=== PATIENT | female | born 1965 | race Caucasian/White ===

== ENCOUNTER → 2019-03-29 | Outpatient (CLI) | payer OTHER ==
[2019-03-29 12:41] LABS: HCT 43.9 % (34.0-46.0); HGB 14.5 gm/dL (11.4-16.0); MCH 28.3 pg (25.0-35.0); MCHC 33.1 g/dL (31.0-37.0); MCV 85.7 fL (80.0-100.0); Mean Platelet Volume 6.6; Platelet Count 295 k/uL (150-450); RBC 5.12 m/uL (3.80-5.40); RDW 13.7 % (11.5-15.5); WBC 11.9 k/uL (3.8-10.6)
[2019-03-29 12:57] LABS: INR 0.9 (<1.2)
[2019-03-29 12:58] LABS: Partial Thromboplastin Time 29.1 sec (22.0-30.0)
[2019-03-29 13:10] LABS: Appearance,Urine Clear (Clear); Bilirubin,Urine Negative (Negative); Blood,Urine Negative (Negative); Color,Urine Yellow; Glucose,Urine (UA) Negative (Negative); Ketones,Urine Negative (Negative); Leukocyte Esterase,Urine Negative (Negative); Nitrite,Urine Negative (Negative); PH, Urine 5.5 (5.0-8.0); Protein,Urine Negative (Negative); Specific Gravity,Urine 1.012 (1.001-1.035); Urobilinogen,Urine <2.0 mg/dL (<2.0)
[2019-03-29 18:42] LABS: African American GFR (CKD) 97.6 (60.0-200.0); Albumin 4.4 g/dL (3.80-4.90); Albumin/Globulin Ratio 1.91 (1.60-3.17); Anion Gap 5.9 mmol/L (4.00-12.00); BUN/Creat Ratio 18.75 Ratio (12.00-20.00); Calcium 9.3 mg/dL (8.7-10.3); Carbon Dioxide 28.1 mmol/L (21.6-31.8); Globulin 2.3 g/dL (1.6-3.3); Potassium 4.7 mmol/L (3.5-5.5); Total Bilirubin 0.4 mg/dL (0.3-1.2); Total Protein 6.7 g/dL (6.2-8.2)
== END | disposition home or self-care (01) ==
LOC: LABWHC1 11:41
PROVIDERS: ATTEND Orthopaedic Surgery
DX: Z01.812 Encounter for preprocedural laboratory examination (principal)
CPT/HCPCS: 36415; 80053; 81003; 85027; 85610; 85730; 87070

== ENCOUNTER 2019-04-09 08:16 | Observation (INO) | payer OTHER ==
[~2019-04-09 08:16] MED LIST: HYDROmorphone 0.5 MG/0.5 ML SYRINGE IVP PRN; LIDOCAINE 1% 20 ML VIAL (10MG/ML) FOR IV START INTRADERMA PRN; ROPIVACAINE 246.25 MG, EPINEPHrine 0.5 MG, KETOROLAC 30 MG, cloNIDine HCL/PF 80 MCG, WA... MISCELLANE ONE; TRANEXAMIC ACID 1,000 MG in SODIUM CHLORIDE 0.9% 100 ML IVPB ONE
[2019-04-09] MEDS: LACTATED RINGERS 1,000 ML IV SCH ×2 (08:42→09:34)
[2019-04-09] MEDS: ONDANSETRON 4 MG/2 ML VIAL IVP ONE ×2 (08:43→13:47)
[2019-04-09] MEDS: MELOXICAM 7.5 MG TAB PO ONE ×2 (08:43→13:47)
[2019-04-09] MEDS: ACETAMINOPHEN TAB 500 MG TAB PO ONE ×2 (08:43→13:47)
[2019-04-09] MEDS ORDERED: MIDAZOLAM (PF) 2 MG/2 ML VIAL IVP ONE (08:58)
[2019-04-09] MEDS ORDERED: fentaNYL (PF) 50 MCG/ML 2 ML AMP IVP ONE (08:58)
[2019-04-09] MEDS ORDERED: HYDROcodone/APAP 5-325MG 1 EACH TAB PO PRN (09:09)
[2019-04-09] MEDS ORDERED: NA PHOS,M-B/NA PHOS,DI-BA 133 ML ENEMA RECTAL PRN (09:09)
[2019-04-09] MEDS ORDERED: BISACODYL 10 MG SUPP RECTAL PRN (09:09)
[2019-04-09] MEDS ORDERED: ONDANSETRON 4 MG/2 ML VIAL IVP PRN (09:09)
[2019-04-09] MEDS ORDERED: HYDROmorphone 0.5 MG/0.5 ML SYRINGE IVP PRN (09:09)
[2019-04-09] MEDS ORDERED: NALOXONE 0.4 MG/ML 1 ML VIAL IV PRN (09:09)
[2019-04-09] MEDS ORDERED: DIAZEPAM 5 MG TAB PO PRN (09:09)
[2019-04-09] MEDS ORDERED: MAGNESIUM HYDROXIDE 2,400 MG/10 ML CUP PO PRN (09:09)
[2019-04-09] MEDS ORDERED: HYDROmorphone 1 MG/ML 1 ML SYRINGE IVP PRN (09:09)
[2019-04-09] MEDS ORDERED: MIDAZOLAM 2 MG/2 ML VIAL ONE (09:37)
[2019-04-09] MEDS ORDERED: PROPOFOL 10 MG/ML 20 ML VIAL IV ONE (09:37)
[2019-04-09] MEDS ORDERED: fentaNYL (PF) 50 MCG/ML 2 ML AMP ONE (09:37)
[2019-04-09] MEDS ORDERED: TRANEXAMIC ACID 1,000 MG/10 ML VIAL ONE (09:37)
[2019-04-09] MEDS ORDERED: ceFAZolin 3,000 MG in SODIUM CHLORIDE 0.9% IRRIGATIO 3,000 ML IRRIGATION ONE (09:37)
[2019-04-09] MEDS ORDERED: SODIUM CHLORIDE 0.9% 100 ML BAG ONE (09:37)
[2019-04-09] MEDS ORDERED: LACTATED RINGERS 1,000 ML IV ONE (10:19)
[2019-04-09] MEDS ORDERED: ROPIVACAINE 0.2%-NS ON-Q PUMP 1,090 MG, EMPTY PAIN BALL 1 EACH MISCELLANE PRN (10:23)
--- NOTE | 2019-04-09 10:26 | P.ANPRN ---
Procedure Note - Anesthesia - Nerve Block Performed Right Adductor Canal Infusion Time Out Performed: Yes Date of Procedure: 04/09/19 Procedure Start Time: 08:57 Location of Patient Procedure: PreOp Indication: Acute Post-Operative Pain Specifically requested for management of pain by DrMarily: Gurmeet Spangler Sedation Type: Sedate with meaningful contact maintained Preparation: Sterile Prep Position: Supine Catheter Depth at Skin (cm): 8 Catheter: Indwelling Needle Types: Pajunk Needle Gauge: 20 Technique: Ultrasound Injectate: 0.5% Ropivacaine (see comment for volume) (20 cc) Blood Aspirated: No Pain Paresthesia on Injection Noted: No Resistance on Injection: Normal Events: Uneventful and Well Tolerated
--- NOTE | 2019-04-09 10:58 | P.OP ---
Date of Procedure: 04/09/19 Preoperative Diagnosis: Severe osteoarthritis right knee Postoperative Diagnosis: Severe osteoarthritis right knee Procedure(s) Performed: Right total knee arthroplasty with visionaire patient specific guides Implants: Kong and Nephew Journey II CR Oxinium cruciate retaining femoral component size 5, right Kong & Nephew Journey right nonporous tibial baseplate size 3 Kong & Nephew Journey II, XLPE CR articular insert, size 9 mm, Size 3-4 right Kong & Nephew Journey BCS resurfacing oval patellar component, 29 mm All components were cemented using Palacos R bone cement. Visionaire patient specific guides The articulation is Oxinium on polyethylene. Anesthesia: spinal Surgeon: Gurmeet Spangler Emissions Testing Technician #1: Adele Lopez Estimated Blood Loss (ml): 50 Pathology: other (Bone and cartilage) Condition: stable Disposition: PACU Indications for Procedure: After failure of conservative treatment we discussed the surgical and nonsurgical treatment options at length. Patient wishes to proceed with a total knee arthroplasty. Complications specific to this procedure were discussed at length, including but not limited to infection, bleeding, stiffness, and nerve injury. Patient is aware of all these complications and informed consent was obtained Operative Findings: The operative findings are consistent with severe osteoarthritis of the right knee Description of Procedure: Patient was seen in the preoperative area consent was reviewed and operative site was marked with a skin marker. An adductor canal pain catheter was placed by anesthesia in the preoperative area. Patient was then brought to the operating room and given preoperative antibiotics intravenously. A spinal anesthetic was administered by the anesthesia department. A tourniquet was placed on the upper thigh and the lower extremity was prepped and draped in usual sterile fashion. A gram of transexamic acid was given. A universal timeout was then performed which confirmed the patient's name, surgical site, ALLERGIES, and consent. The lower extremity was then exsanguinated and tourniquet was inflated to 250 mmHg. A standard and anterior midline approach to the knee was performed. The skin and subcutaneous tissue was dissected down to the patellar tendon. A medial parapatellar arthrotomy was then performed. The knee was then extended, the patellar was everted, and the knee was again flexed. Anterior horns of both menisci were excised, and a release was performed to the posterior medial aspect of the knee. On gross visual inspection, there was complete loss of articular cartilage in the medial and patellofemoral joint spaces. There was also significant cartilage damage in the lateral compartment. There were multiple periarticular osteophytes. The patient specific guide was placed on the distal femur, and pinned in place. Using the patient specific guide, the distal femoral cut was performed. The cutting block was then removed and the cut was checked for flatness. The appropriate 5-in-1 cutting block was then pinned in place through the holes that were drilled through the patient specific guide. The anterior condyles were cut without notching. The posterior and chamfer cuts were performed while protecting the collateral ligaments. The cutting block was then removed. Attention was then directed to the tibia. The remaining ACL was removed with a Ronguer, and the tibia was then gently subluxed forward with a large bent knee retractor. Any remaining menisci was excised. The posterior lateral corner was cauterized in order to cauterize the lateral geniculate artery. The patient specific guide for the tibia was then placed and was held in place with pins. Pinholes were then placed for rotation of the tibial component as well. Proximal tibia was then cut and sized. Next trials were then placed with the appropriate-sized insert. The knee was able to fully extend and flex to 130 and was stable throughout all range of motion. The knee was then extended, patella everted. Patella was then measured, and then using an osteotomy guide, the patella was cut at the appropriate level. The patella was then measured and drilled and the patella trial was then placed. The knee was then taken through range of motion with the patella trial and the patella tracked normally. The knee was then extended patella trial was then removed and the patella was everted. Knee was then flexed and lug holes were drilled through the femoral trial and the femoral trial was then removed. The tibial was then exposed, and the tibial broach guide was then pinned in place after it was set for the appropriate rotation to allow for the most coverage without overhang. The tibia was then reamed and broached. The cut surfaces of bone were then irrigated with pulsatile lavage. The posterior structures were injected with the ropivacaine solution. The knee was also irrigated with Irrisept solution. The components were then opened, the cement was mixed, and the components were then cemented in place. The cement was allowed to harden with the knee in full extension. While the cement was hardening, the remaining soft tissues were then injected with a ropivacaine solution, which consisted of 246.25 mg of ropivacaine, 0.5 mg of epinephrine, 30 mg of Toradol, 80 g of clonidine, and 48.45 mL of sterile water, for a total of 100 mL of fluid injected. After the cemented hardened. The tourniquet was released, and hemostasis was obtained. A second gram of transexamic acid was given. The knee was again irrigated. The knee was again taken through range of motion and found to be stable throughout all range of motion of 0-130, and the patella tracked normally. The fascia was then closed with #2 strata fix suture. The subcutaneous tissue was closed with 3-0 Vicryl and 3-0 strata fix. Dermabond glue was used for the skin and placed with the knee in flexion. The patient was placed in a sterile silver dressing. Patient was then transferred to recovery room in stable condition. The senior administrative assistant PAULETTE Montgomery was required due the complexity surgery and the need for a skilled pastrycook's assistant. She assisted in positioning, draping, retraction, and closure of the wound.
--- NOTE | 2019-04-09 12:27 | XR ---
EXAMINATION TYPE: XR knee limited RT DATE OF EXAM: 04/09/2019 COMPARISON: None HISTORY: Knee replacement TECHNIQUE: 2 view right knee FINDINGS: Tibial and femoral components of in place. Postsurgical changes are within the soft tissues . No significant joint effusion is evident. No acute fractures are evident IMPRESSION: 1. No acute fractures post knee replacement.
--- NOTE | 2019-04-09 13:14 | P.CONS ---
History of Present Illness - Reason for Consult Consult date: 04/09/19 Medical management of hypertension - Chief Complaint Right total knee arthroplasty - History of Present Illness Patient is a 53-year-old female with a known history of hypertension, GERD, osteoarthritis and also history of IBS was admitted to the hospital for elective right total knee arthroplasty. Patient is status post facility. Currently denied any complaints of chest pain or shortness of breath. No nausea vomiting or abdominal pain. Postoperatively the patient was hypotensive. Pain is fairly controlled. Patient does smoke cigarettes on daily basis. No leg swelling. No orthopnea no PND. Denied any complaints of nausea vomiting, abdominal pain or diarrhea. Review of Systems Constitutional: Patient denies any fever or chills . No generalized weakness or weight loss. Abdomen: Patient denied nausea vomiting and diarrhea and abdominal pain. Cardiovascular: Patient denies any chest pain or short of breath no palpitations. Respiratory: patient denied any cough is from production. No shortness of breath Neurologic: Patient denied any numbness or tingling headache. Musculoskeletal: Patient denies any complaints of joint swelling or deformity. Skin: Negative Psychiatric: Negative Endocrine: No heat or cold intolerance. No recent weight gain. Genitourinary: No dysuria or hematuria. All other 14 point ROS negative except the above Past Medical History Past Medical History: GERD/Reflux, Hypertension, Osteoarthritis (OA), Pneumonia Additional Past Medical History / Comment(s): IBS,diverticulitis History of Any Multi-Drug Resistant Organisms: None Reported Past Surgical History: Cholecystectomy, Joint Replacement, Orthopedic Surgery, Tubal Ligation Additional Past Surgical History / Comment(s): aura bunionectomy, left carpal tunnel, left knee arthroscopy, colposcopy, left knee replaced 2014 Past Anesthesia/Blood Transfusion Reactions: No Reported Reaction Additional Past Anesthesia/Blood Transfusion Reaction / Comm: woke up in middle of surgery before Smoking Status: Current every day smoker - Past Family History Mother Family Medical History: No Reported History Medications and Allergies Home Medications Medication Instructions Recorded Confirmed Type Dextroamphetamine/Amphetamine 5 mg PO 1700 07/15/15 04/09/19 History [Adderall] Dextroamphetamine/Amphetamine 35 mg PO DAILY 07/15/15 04/09/19 History [Adderall] Pantoprazole Sodium [Protonix] 40 mg PO DAILY 07/15/15 04/09/19 History ALPRAZolam [Xanax] 0.25 mg PO BID PRN 04/05/19 04/09/19 History Cholecalciferol (Vitamin D3) 5,000 unit PO DAILY 04/05/19 04/09/19 History [Vitamin D3] Hyoscyamine Sulfate [Levbid] 0.375 mg PO DAILY 04/05/19 04/09/19 History Ibuprofen [Motrin] 600 mg PO Q8HR PRN 04/05/19 04/09/19 History Losartan Potassium [Cozaar] 100 mg PO DAILY 04/05/19 04/09/19 History Meloxicam [Mobic] 15 mg PO DAILY 04/05/19 04/09/19 History Vortioxetine Hydrobromide 20 mg PO DAILY 04/05/19 04/09/19 History [Trintellix] Allergies Allergy/AdvReac Type Severity Reaction Status Date / Time doxycycline Allergy Chest Verified 04/09/19 08:30 Pain,SOB Penicillins Allergy Unknown Verified 04/09/19 08:30 Childhood Physical Exam Vitals: Vital Signs Temp Pulse Resp BP Pulse Ox 04/09/19 11:59 65 16 112/61 97 04/09/19 11:44 62 16 109/59 96 04/09/19 11:29 97.3 F L 77 16 104/56 95 04/09/19 08:36 97.0 F L 97 18 132/62 97 Intake and Output 04/08/19 04/09/19 04/09/19 22:59 06:59 14:59 Intake Total 1801 Output Total 50 Balance 1751 Intake: IV 1801 Output: Estimated Blood Loss 50 PHYSICAL EXAMINATION: Patient is lying in the bed comfortably, no acute distress, awake alert and rocky ented.. HEENT: Normocephalic. Neck is supple. Pupils reactive. Nostrils clear. Oral cavity is moist. Ears reveal no drainage. Neck reveals no JVD, carotid bruits, or thyromegaly. CHEST EXAMINATION: Trachea is central. Symmetrical expansion. Lung oyo clear to auscultation and percussion. CARDIAC: Normal S1, S2 with no gallops. No murmurs ABDOMEN: Soft. Bowel sounds normal. No organomegaly. No abdominal bruits. Extremities: reveal no edema. No clubbing or cyanosis Neurologically awake, alert, oriented x3 with well-coordinated movements. No focal deficits noted Skin: No rash or skin lesions. Psychiatric: Coperative. Nonsuicidal Musculoskeletal: No joint swelling or deformity. Right knee surgical site intact. Normal range of motion. Assessment and Plan Assessment: Status post right total knee arthroplasty secondary to osteoarthritis Hypertension. Blood pressure is on the lower side now. Osteoarthritis GERD IBS History of diverticulitis Nicotine addiction DVT prophylaxis Plan: Patient will be continued on pain management and bowel regimen. Currently on anticoagulation with aspirin twice daily. Patient does take losartan at home which will be held due to hypotension. Encourage ambulation and incentive spirometry. Follow closely and further recommendations based on the clinical course. Smoking cessation has been counseled extensively. Thank you for your consult. Time with Patient: Greater than 30
[2019-04-09] MEDS: HYDROmorphone 0.5 MG/0.5 ML SYRINGE IVP PRN ×2 (14:06→18:43)
[2019-04-09 14:22] VITALS: BMI 31.1
[2019-04-09] MEDS: SODIUM CHLORIDE 0.9% 1,000 ML IV SCH (17:22)
[2019-04-09] MEDS: PANTOPRAZOLE 40 MG TABLET PO SCH (17:23)
[2019-04-09] MEDS: NON-FORMULARY DRUG (Dextroamphetamine/Amphetamine [Adderall] 5 MG) PO SCH (17:28)
[2019-04-09] MEDS: HYDROcodone/APAP 5-325MG 1 EACH TAB PO PRN (17:32)
[2019-04-09] MEDS: hydrOXYzine PAMOATE 25 MG CAP PO PRN (17:32)
[2019-04-09] MEDS: ASPIRIN 325 MG TAB PO SCH (20:42)
[2019-04-09] MEDS: SENNOSIDES-DOCUSATE SODIUM 1 EACH TAB PO SCH (20:42)
[2019-04-10] MEDS: HYDROmorphone 0.5 MG/0.5 ML SYRINGE IVP PRN ×4 (01:00→18:16)
[2019-04-10] MEDS: SODIUM CHLORIDE 0.9% 1,000 ML IV SCH ×3 (03:58→22:00)
[2019-04-10] MEDS: HYDROcodone/APAP 5-325MG 1 EACH TAB PO PRN (04:38)
[2019-04-10] MEDS: hydrOXYzine PAMOATE 25 MG CAP PO PRN (04:39)
[2019-04-10 07:36] LABS: Basophils % (A) 0 %; Eosinophils # (A) 0.3 k/uL (0-0.7); Eosinophils % (A) 4 %; HCT 37.3 % (34.0-46.0); HGB 11.9 gm/dL (11.4-16.0); Lymphocytes # (A) 1.8 k/uL (1.0-4.8); Lymphocytes % (A) 20 %; MCH 27.6 pg (25.0-35.0); MCV 86.4 fL (80.0-100.0); Mean Platelet Volume 6.9; Monocytes # (A) 0.7 k/uL (0-1.0); Monocytes % (A) 7 %; Neutrophils # (A) 6.3 k/uL (1.3-7.7); Neutrophils % (A) 68 %; Platelet Count 257 k/uL (150-450); RBC 4.32 m/uL (3.80-5.40); RDW 14.4 % (11.5-15.5); WBC 9.3 k/uL (3.8-10.6)
[2019-04-10 07:48] LABS: African American GFR (CKD) >90 (>60 ml/min/1.73 sqM); Anion Gap 7 mmol/L; Blood Urea Nitrogen 15 mg/dL (7-17); Calcium 8.4 mg/dL (8.4-10.2); Carbon Dioxide 24 mmol/L (22-30); Chloride 111 mmol/L (98-107); Glucose 107 mg/dL (74-99); Potassium 4.1 mmol/L (3.5-5.1); Sodium 142 mmol/L (137-145)
[2019-04-10] MEDS: ASPIRIN 325 MG TAB PO SCH ×2 (08:00→20:37)
[2019-04-10] MEDS: PANTOPRAZOLE 40 MG TABLET PO SCH (08:00)
[2019-04-10] MEDS: CHOLECALCIFEROL 1,000 UNIT TAB PO SCH (08:00)
[2019-04-10] MEDS ORDERED: MELOXICAM 7.5 MG TAB PO SCH (09:00)
[2019-04-10] MEDS ORDERED: HYDROcodone/APAP 7.5-325MG 1 EACH TAB PO PRN (09:11)
[2019-04-10] MEDS ORDERED: KETOROLAC 30 MG/ML 1 ML VIAL IVP PRN (09:11)
--- NOTE | 2019-04-10 09:31 | P.DS ---
Providers Date of admission: 04/10/19 01:27 Expected date of discharge: 04/10/19 Attending physician: Gurmeet Spangler Consults: 04/09/19 09:09 Consult Physician Routine Consulting Provider: Remigio Yeung Consult Reason/Comments: medical management Do you want consulting provider notified?: Yes Primary care physician: Miles Graff - Discharge Diagnosis(es) (1) Osteoarthritis of right knee Current Visit: Yes Status: Acute (2) Status post total right knee replacement Current Visit: Yes Status: Acute Hospital Course: This is a 53-year-old female with known history of degenerative arthritis of the right knee. The patient presents for evaluation. After discussion and consideration patient elects to proceed with total knee arthroplasty. The patient is seen preoperatively by Dr. Spangler and medically cleared for surgery by their primary care physician. Patient is admitted to [facility] on 04/09/2019 for total knee arthroplasty. The procedures performed without complication or sequelae. The patient is doing well postoperatively. Labs and vital signs are stable on day of discharge. On day of discharge patient's knee incision is healing well. There is minimal erythema. There is no drainage noted at this time. There is minimal soft tissue swelling to the knee. Patient has full foot and ankle motion without difficulty or pain. Calf is soft and nontender to palpation. Neurovascular status to the right lower extremity is intact. Patient is discharged home in good condition. Opioid start talking form is reviewed and signed at patient bedside. Please see med rec for accurate list of home medications. Plan - Discharge Summary Discharge Rx Participant: Yes New Discharge Prescriptions: New Aspirin 325 mg PO BID #60 tab HYDROcodone/APAP 7.5-325MG [[place] 7.5-325] 1 - 2 tab PO Q6H PRN #56 tab PRN Reason: Pain Sennosides [Senokot] 1 tab PO BID #60 tablet No Action Dextroamphetamine/Amphetamine [Adderall] 5 mg PO DAILY@1700 Pantoprazole Sodium [Protonix] 40 mg PO DAILY Dextroamphetamine/Amphetamine [Adderall] 30 mg PO DAILY Ibuprofen [Motrin] 600 mg PO Q8HR PRN PRN Reason: Pain Hyoscyamine Sulfate [Levbid] 0.375 mg PO DAILY Meloxicam [Mobic] 15 mg PO DAILY Losartan Potassium [Cozaar] 100 mg PO DAILY ALPRAZolam [Xanax] 0.25 mg PO BID PRN PRN Reason: Anxiety Vortioxetine Hydrobromide [Trintellix] 20 mg PO DAILY Cholecalciferol (Vitamin D3) [Vitamin D3] 5,000 unit PO DAILY Dextroamphetamine/Amphetamine [Dextroamp-Amphet ER 5 mg Cap] 5 mg PO DAILY Discharge Medication List Dextroamphetamine/Amphetamine [Adderall] 5 mg PO DAILY@1700 07/15/15 [History] Dextroamphetamine/Amphetamine [Adderall] 30 mg PO DAILY 07/15/15 [History] Pantoprazole Sodium [Protonix] 40 mg PO DAILY 07/15/15 [History] ALPRAZolam [Xanax] 0.25 mg PO BID PRN 04/05/19 [History] Cholecalciferol (Vitamin D3) [Vitamin D3] 5,000 unit PO DAILY 04/05/19 [History] Hyoscyamine Sulfate [Levbid] 0.375 mg PO DAILY 04/05/19 [History] Ibuprofen [Motrin] 600 mg PO Q8HR PRN 04/05/19 [History] Losartan Potassium [Cozaar] 100 mg PO DAILY 04/05/19 [History] Meloxicam [Mobic] 15 mg PO DAILY 04/05/19 [History] Vortioxetine Hydrobromide [Trintellix] 20 mg PO DAILY 04/05/19 [History] Aspirin 325 mg PO BID #60 tab 04/10/19 [Rx] Dextroamphetamine/Amphetamine [Dextroamp-Amphet ER 5 mg Cap] 5 mg PO DAILY 04/10/19 [History] HYDROcodone/APAP 7.5-325MG [[place] 7.5-325] 1 - 2 tab PO Q6H PRN #56 tab 04/10/19 [Rx] Sennosides [Senokot] 1 tab PO BID #60 tablet 04/10/19 [Rx] Follow up Appointment(s)/Referral(s): Gurmeet Spangler DO [Doctor of Osteopathic Medicine] - 2 Weeks Activity/Diet/Wound Care/Special Instructions: Weightbearing as tolerated with a walker. CPM 5-6h daily. Leave dressing intact. May be removed by home care nurse or by patient in 10 days. May shower with dressing on. Recommend use of compression stockings for 2 weeks during the day. May remove at night. Please follow up with [facility] and call with any questions or concerns, . Discharge Disposition: HOME WITH HOME HEALTH SERVICES
[2019-04-10] MEDS: HYDROcodone/APAP 7.5-325MG 1 EACH TAB PO PRN ×2 (10:25→15:53)
--- NOTE | 2019-04-10 13:31 | P.PN ---
Progress Note - Text Anesthesia POD 1, 0600. Patient is status post right TKR under spinal anesthesia with a right adductor canal catheter placed for postoperative pain relief. With ropivacaine 0.2% running at 10 cc's per hour, the patient's VAS is (2, 4). Catheter site is clean dry and intact.
[2019-04-10] MEDS: AMPHETAMINE PO SCH (15:16)
[2019-04-10] MEDS: DEXTROAMPHETAMINE PO SCH (15:16)
[2019-04-10] MEDS: LACTATED RINGERS 1,000 ML IV SCH (15:16)
[2019-04-10] MEDS: SENNOSIDES-DOCUSATE SODIUM 1 EACH TAB PO SCH (20:37)
[2019-04-10] MEDS: NON-FORMULARY DRUG (Dextroamphetamine/Amphetamine [Adderall] 5 MG) PO SCH (22:00)
[2019-04-11] MEDS: HYDROcodone/APAP 7.5-325MG 1 EACH TAB PO PRN ×3 (00:26→11:14)
[2019-04-11] MEDS: hydrOXYzine PAMOATE 25 MG CAP PO PRN ×2 (00:26→05:40)
[2019-04-11] MEDS: LACTATED RINGERS 1,000 ML IV SCH (07:24)
[2019-04-11] MEDS: SODIUM CHLORIDE 0.9% 1,000 ML IV SCH (08:03)
[2019-04-11] MEDS: DEXTROAMPHETAMINE PO SCH (08:04)
[2019-04-11] MEDS: AMPHETAMINE PO SCH (08:04)
[2019-04-11 08:09] VITALS: BP 136/69; PULSE 74; RESP 15; TEMP 98.4
[2019-04-11] MEDS: CHOLECALCIFEROL 1,000 UNIT TAB PO SCH (08:10)
[2019-04-11] MEDS: PANTOPRAZOLE 40 MG TABLET PO SCH (08:10)
[2019-04-11] MEDS: ASPIRIN 325 MG TAB PO SCH (08:10)
--- NOTE | 2019-04-11 14:11 | P.PN ---
Subjective Progress Note Date: 04/10/19 Principal diagnosis: Right total knee arthroplasty Patient is a 53-year-old female with a known history of hypertension, GERD, osteoarthritis and also history of IBS was admitted to the hospital for elective right total knee arthroplasty. Patient is status post facility. Currently denied any complaints of chest pain or shortness of breath. No nausea vomiting or abdominal pain. Postoperatively the patient was hypotensive. Pain is fairly controlled. Patient does smoke cigarettes on daily basis. No leg swelling. No orthopnea no PND. Denied any complaints of nausea vomiting, abdominal pain or diarrhea. 04/10/2019 Patient denied any complains of chest pain or shortness of breath. Still having right knee pain. No fever no chills. No headache or dizziness or lighth eadedness. No nausea vomiting or abdominal pain or diarrhea.. Laboratory data reviewed. Current medications reviewed. Objective - Vital Signs Vital signs: Vital Signs Temp 98.4 F 04/10/19 07:00 Pulse 72 04/10/19 07:00 Resp 16 04/10/19 07:00 BP 122/70 04/10/19 07:00 Pulse Ox 97 04/10/19 07:00 Intake & Output 04/09/19 04/10/19 04/10/19 18:59 06:59 18:59 Intake Total 2091 50 Output Total 1150 Balance 941 50 Intake: IV 1801 Intake, IV Titration 50 Amount ceFAZolin 2 gm In Sodium 50 Chloride 0.9% 50 ml @ 100 mls/hr IVPB Q8HR [facility] Rx# :[id number] Oral 290 Output: Urine 1100 Estimated Blood Loss 50 Other: Voiding Method Toilet # Voids 1 - Exam PHYSICAL EXAMINATION: Patient is lying in the bed comfortably, no acute distress, awake alert and oriented.. HEENT: Normocephalic. Neck is supple. Pupils reactive. Nostrils clear. Oral cavity is moist. Ears reveal no drainage. Neck reveals no JVD, carotid bruits, or thyromegaly. CHEST EXAMINATION: Trachea is central. Symmetrical expansion. Lung yoo clear to auscultation and percussion. CARDIAC: Normal S1, S2 with no gallops. No murmurs ABDOMEN: Soft. Bowel sounds normal. No organomegaly. No abdominal bruits. Extremities: reveal no edema. No clubbing or cyanosis Neurologically awake, alert, oriented x3 with well-coordinated movements. No focal deficits noted Skin: No rash or skin lesions. Psychiatric: Coperative. Nonsuicidal Musculoskeletal: No joint swelling or deformity. Right knee surgical site intact. Normal range of motion. - Labs CBC & Chem 7: 04/10/19 07:02 04/10/19 07:02 Labs: Abnormal Lab Results - Last 24 Hours (Table) 04/10/19 Range/Units 07:02 Chloride 111 H (98-107) mmol/L Glucose 107 H (74-99) mg/dL Assessment and Plan Assessment: Status post right total knee arthroplasty secondary to osteoarthritis Hypertension. Blood pressure is on the lower side now. Osteoarthritis GERD IBS History of diverticulitis Nicotine addiction DVT prophylaxis Plan: Patient will be continued on pain management and bowel regimen. Currently on anticoagulation with aspirin twice daily. Patient does take losartan at home which will be held due to hypotension. Encourage ambulation and incentive spirometry. Follow closely and further recommendations based on the clinical course. Smoking cessation has been counseled extensively. Time with Patient: Greater than 30
--- NOTE | 2019-04-11 14:13 | P.PN ---
Subjective Progress Note Date: 04/11/19 Principal diagnosis: Right total knee arthroplasty Patient is a 53-year-old female with a known history of hypertension, GERD, osteoarthritis and also history of IBS was admitted to the hospital for elective right total knee arthroplasty. Patient is status post facility. Currently denied any complaints of chest pain or shortness of breath. No nausea vomiting or abdominal pain. Postoperatively the patient was hypotensive. Pain is fairly controlled. Patient does smoke cigarettes on daily basis. No leg swelling. No orthopnea no PND. Denied any complaints of nausea vomiting, abdominal pain or diarrhea. 04/10/2019 Patient denied any complains of chest pain or shortness of breath. Still having right knee pain. No fever no chills. No headache or dizziness or lighth eadedness. No nausea vomiting or abdominal pain or diarrhea.. Laboratory data reviewed. 04/11/2019 Patient denied any complaints of chest pain or shortness of breath. Right knee pain is much improved. Patient is is able to ambulate without support. Continued on physical therapy. Blood pressure is trending up. Patient can be started back on home dose of losartan upon discharge. No other acute overnight issues. Patient is being discharged home today. Discharge medication reconciliation was done. Current medications reviewed. Objective - Vital Signs Vital signs: Vital Signs Temp 98.4 F 04/11/19 07:04 Pulse 74 04/11/19 07:04 Resp 15 04/11/19 07:04 BP 136/69 04/11/19 07:04 Pulse Ox 97 04/11/19 07:04 Intake & Output 04/10/19 04/11/19 04/11/19 18:59 06:59 18:59 Intake Total 590 320 Balance 590 320 Intake: Oral 590 320 Other: Voiding Method Toilet Toilet # Voids 2 2 - Exam PHYSICAL EXAMINATION: Patient is lying in the bed comfortably, no acute distress, awake alert and oriented.. HEENT: Normocephalic. Neck is supple. Pupils reactive. Nostrils clear. Oral cavity is moist. Ears reveal no drainage. Neck reveals no JVD, carotid bruits, or thyromegaly. CHEST EXAMINATION: Trachea is central. Symmetrical expansion. Lung yoo clear to auscultation and percussion. CARDIAC: Normal S1, S2 with no gallops. No murmurs ABDOMEN: Soft. Bowel sounds normal. No organomegaly. No abdominal bruits. Extremities: reveal no edema. No clubbing or cyanosis Neurologically awake, alert, oriented x3 with well-coordinated movements. No focal deficits noted Skin: No rash or skin lesions. Psychiatric: Coperative. Nonsuicidal Musculoskeletal: No joint swelling or deformity. Right knee surgical site intact. Normal range of motion. - Labs CBC & Chem 7: 04/10/19 07:02 04/10/19 07:02 Assessment and Plan Assessment: Status post right total knee arthroplasty secondary to osteoarthritis Hypertension. Osteoarthritis GERD IBS History of diverticulitis Nicotine addiction DVT prophylaxis Plan: Patient will be continued on pain management and bowel regimen. Currently on anticoagulation with aspirin twice daily. Patient can be continued on home dose of losartan.. Encourage ambulation and incentive spirometry. Smoking cessation has been counseled extensively. Patient is being discharged home today. Time with Patient: Greater than 30
== END 2019-04-11 14:21 | disposition home health service (06) ==
LOC: OR 08:16 → 4SSUR 11:41 → OR 04-10 01:26 → 4SSUR 04-10 01:27
PROVIDERS: ADMIT Orthopaedic Surgery; ATTEND Orthopaedic Surgery
DX: M17.11 Unilateral primary osteoarthritis, right knee (principal); I10 Essential (primary) hypertension; K21.9 Gastro-esophageal reflux disease without esophagitis; M19.90 Unspecified osteoarthritis, unspecified site; K58.9 Irritable bowel syndrome, unspecified; F39 Unspecified mood [affective] disorder; F17.210 Nicotine dependence, cigarettes, uncomplicated; Z87.01 Personal history of pneumonia (recurrent); Z87.19 Personal history of other diseases of the digestive system; Z90.49 Acquired absence of other specified parts of digestive tract; Z96.652 Presence of left artificial knee joint; Z79.1 Long term (current) use of non-steroidal anti-inflammatories (NSAID); Z79.899 Other long term (current) drug therapy; Z88.1 Allergy status to other antibiotic agents; Z88.0 Allergy status to penicillin; Z98.51 Tubal ligation status; Z71.6 Tobacco abuse counseling
CPT/HCPCS: 97116; 97110; 97161; 80048; 85025; 88300; 73560; 27447; G0378 ×2; C1713; C1776; C1772; J2250 ×2; J0171; J0690 ×2; J2405; J3010; J1885 ×2; J2795 ×2; J2704; J0735; J1170 ×3